=== PATIENT | female | born 1975 | race Caucasian/White ===

== ENCOUNTER 2016-12-16 16:19 | Emergency (ER) | payer OTHER ==
[2016-12-16 18:48] VITALS: BP 127/74
[2016-12-16] MEDS ORDERED: DOXYcycline CAP(*) 100 MG PO ONE (18:57)
--- NOTE | 2016-12-16 19:21 | UC ---
Skin Complaint HPI - HPI Summary HPI Summary: 41 y/o female presents to the urgent clinic c/o of a tick bite she noticed this morning. She reports she removed part of it and some remnants still in her back. Patient denies fever, headache, rash, SOB, chest pain, N/V/D - History of Current Complaint Chief Complaint: UCSkin Time Seen by Provider: 12/16/16 18:50 Stated Complaint: TICK BITE Hx Obtained From: Patient Hx Last Menstrual Period: 11/30/16 ?: No Onset/Duration: Sudden Onset, Lasting Hours, Still Present Onset Severity: Mild Current Severity: Mild Pain Intensity: 0 Pain Scale Used: 0-10 Numeric Aggravating: Nothing Alleviating: Nothing Associated Signs & Symptoms: Positive: Nausea, Vomiting. Negative: Fever, Rash - Allergy/Home Medications Allergies/Adverse Reactions: Allergies Allergy/AdvReac Type Severity Reaction Status Date / Time No Known Allergies Allergy Verified 12/16/16 18:43 Review of Systems Constitutional: Negative Skin: Other - tick bite in her back Eyes: Negative ENT: Negative Respiratory: Negative Cardiovascular: Negative Gastrointestinal: Negative Genitourinary: Negative Motor: Negative Neurovascular: Negative Musculoskeletal: Negative Neurological: Negative Psychological: Negative All Other Systems Reviewed And Are Negative: Yes PMH/Surg Hx/FS Hx/Imm Hx Previously Healthy: Yes - Surgical History Surgical History: Yes Surgery Procedure, Year, and Place: C section 2004 - Family History Known Family History: Positive: Hypertension, Diabetes, Other - colon cancer - Social History Occupation: Employed Full-time Alcohol Use: Rare Substance Use Type: None Smoking Status (MU): Never Smoked Tobacco - Immunization History Most Recent Tetanus Shot: UTD Physical Exam Triage Information Reviewed: Yes Appearance: Well-Appearing, No Pain Distress, Well-Nourished, Thin Vital Signs: Initial Vital Signs Temp 99.2 F 12/16/16 18:44 Pulse 85 12/16/16 18:44 Resp 16 12/16/16 18:44 BP 127/74 12/16/16 18:44 Pulse Ox 99 12/16/16 18:44 Vital Signs Reviewed: Yes Eye Exam: Normal Eyes: Positive: Conjunctiva Clear ENT Exam: Normal ENT: Positive: Hearing grossly normal, Pharynx normal, TMs normal Neck exam: Normal Neck: Positive: Supple, Nontender, No Lymphadenopathy Respiratory Exam: Normal Respiratory: Positive: Chest non-tender, Normal breath sounds Cardiovascular Exam: Normal Cardiovascular: Positive: RRR, No Murmur, Pulses Normal Abdominal Exam: Normal Abdomen Description: Positive: Nontender, No Organomegaly, Soft Bowel Sounds: Positive: Present Musculoskeletal Exam: Normal Neurological Exam: Normal Psychological Exam: Normal Skin: Positive: Other - left mid back with tick bite. remmnants of tick still inside. mild erythema without swelling or tenderness at bite site. Course/Dx - Course Course Of Treatment: Tick bite:left mid back with tick bite. remmnants of tick still inside. mild erythema without swelling or tenderness at bite site. removal of remmants was attempted without success. Pt given Prophylactic Doxyxycline to prevent lyme disease. Pt tolerated well medication. Pt advised if fever or rash develops to f/u up with her pcp or return to the urgent care for further treatment. - Differential Diagnoses - Skin Complaint Differential Diagnoses: Allergic Reaction, Eczema, Poison Teresa, Scabies - Diagnoses Provider Diagnoses: Tick bite Discharge - Discharge Plan Condition: Stable Disposition: HOME Patient Education Materials: Tick Bite (ED) Referrals: Brian Lynn MD [Primary Care Provider] - Additional Instructions: Please observe the area for the development or Erythema Migrans for upto 30 days following exposure. Components of the tick saliva can cause transient erythema that should no be confused with Erythema Migrans. Antibiotic prophylaxis with Doxycycline given to the patient to prevent lyme Disease.. Pt tolerated well medication.
== END 2016-12-16 19:42 | disposition home or self-care (01) ==
LOC: UCEAST 16:19
DX: S20.462A Insect bite (nonvenomous) of left back wall of thorax, initial encounter (principal); W57.XXXA Bitten or stung by nonvenomous insect and other nonvenomous arthropods, initial encounter
CPT/HCPCS: 99212; A9270-GY; G0463

== ENCOUNTER 2018-12-15 12:23 | Emergency (ER) | payer OTHER ==
[2018-12-15 12:36] VITALS: BP 136/87
--- NOTE | 2018-12-15 13:03 | UC ---
Lower Extremity/Ankle HPI - HPI Summary HPI Summary: 43-year-old woman comes in with a chief complaint of bilateral pedal edema. The left is worse than the right. Patient has occasionally had some edema but it always goes away each day. Recently the edema is been more frequent and more persistent. Recently she noticed asymmetry where her left leg is larger than her right leg. No shortness of breath no chest pain no abdominal pain. Patient feels well. No change in bowel or bladder. - History of Current Complaint Chief Complaint: UCLowerExtremity Stated Complaint: SWOLLEN LEG AND TINGLES Time Seen by Provider: 12/15/18 12:44 Hx Last Menstrual Period: 11/26/18 Pain Intensity: 0 - Allergies/Home Medications Allergies/Adverse Reactions: Allergies Allergy/AdvReac Type Severity Reaction Status Date / Time No Known Allergies Allergy Verified 12/15/18 12:36 Home Medications: Home Medications Escitalopram * [Lexapro *] 10 mg PO DAILY 12/15/18 [History Confirmed 12/15/18] Ibuprofen TAB* [Advil TAB*] 200 mg PO Q6H PRN 12/15/18 [History Confirmed ] PMH/Surg Hx/FS Hx/Imm Hx Previously Healthy: Yes - Surgical History Surgical History: Yes Surgery Procedure, Year, and Place: C section 2004 - Family History Known Family History: Positive: Hypertension, Diabetes, Other - colon cancer - Social History Alcohol Use: Rare Substance Use Type: None Smoking Status (MU): Never Smoked Tobacco - Immunization History Most Recent Tetanus Shot: UTD Review of Systems All Other Systems Reviewed And Are Negative: Yes Constitutional: Positive: Negative Skin: Positive: Negative Eyes: Positive: Negative ENT: Positive: Negative Respiratory: Positive: Negative Cardiovascular: Positive: Negative Gastrointestinal: Positive: Negative Genitourinary: Positive: Negative Motor: Positive: Negative Neurovascular: Positive: Negative Musculoskeletal: Positive: Calf Tenderness, Edema Neurological: Positive: Negative Psychological: Positive: Negative Is Patient Immunocompromised?: No Physical Exam Triage Information Reviewed: Yes Appearance: Well-Appearing, No Pain Distress, Well-Nourished Vital Signs: Initial Vital Signs Temp 98.2 F 12/15/18 12:31 Pulse 84 12/15/18 12:31 Resp 16 12/15/18 12:31 BP 136/87 12/15/18 12:31 Pulse Ox 100 12/15/18 12:31 Vital Signs Reviewed: Yes Eye Exam: Normal Eyes: Positive: Conjunctiva Clear Neck: Positive: Supple Respiratory: Positive: Lungs clear, Normal breath sounds, No respiratory distress Cardiovascular: Positive: RRR, No Murmur Abdomen Description: Positive: Nontender, Soft. Negative: CVA Tenderness (R), CVA Tenderness (L) Musculoskeletal: Positive: Other: - B/L PEDIAL EDEMA; LEF Neurological Exam: Normal Neurological: Positive: Alert, Muscle Tone Normal Psychological Exam: Normal Psychological: Positive: Age Appropriate Behavior Skin Exam: Normal Lower Extremity Course/Dx - Course Course Of Treatment: Patient Name: DESHAWN MEYER Medical Record#: [id number] Ordering Physician: Bryon Salinas MD Acct.#: [id number] : 1975 Age: 43 Sex: F Location: [facility] Exam Date: 12/15/18 1250 ADM Status: REG ER Order Information: VL LOWER EXT VEINS LEFT Accession Number: [id number] CPT: 06699 HISTORY: LLE Swelling COMPARISONS: None relevant TECHNIQUE: Multiple transverse and longitudinal ultrasound images were obtained of the left lower extremity from the level of the common femoral vein inferiorly through to the infrapopliteal veins using grayscale, color Doppler, and spectral Doppler imaging with and without compression and with augmentation. Comparison images were obtained of the contralateral common femoral vein. FINDINGS: VEINS: The venous system of the left lower extremity is compressible throughout its course, with normal flow on color Doppler imaging and normal response to augmentation on spectral Doppler imaging. SOFT TISSUES: Unremarkable. OTHER FINDINGS: None. IMPRESSION: NO LEFT LOWER EXTREMITY DEEP VEIN THROMBOSIS <Electronically signed by Ángel Rivero MD in [facility]> 12/15/18 1430 I discussed the venous Doppler of her left leg results with the patient. No evidence of DVT. Overall the patient feels well. CBC CMP pending for other possibilities of edema. Patient has no abdominal pain. Plan is to follow-up with the patient's primary care physician within the week. I prescribed HCTZ 25 mg once a day for 7 days to be used as needed. - Differential Dx/Diagnosis Provider Diagnosis: Pedal edema Discharge - Sign-Out/Discharge Documenting (check all that apply): Patient Departure All imaging exams completed and their final reports reviewed: Yes - Discharge Plan Condition: Stable Disposition: HOME Prescriptions: Hydrochlorothiazide TAB* [Hydrodiuril TAB*] 25 mg PO DAILY #7 tab Patient Education Materials: Leg Edema (ED) Referrals: Brian Lynn MD [Primary Care Provider] - Additional Instructions: FOLLOW UP WITH DR LYNN. GET RECHECKED SOONER IF YOUR CONDITION WORSENS OR ANY QUESTIONS OR CONCERNS. . - Billing Disposition and Condition Condition: STABLE Disposition: Home
[2018-12-15 19:26] LABS: ABS Basophils 0.1 10^3/ul (0-0.2); ABS Eosinophils 0.1 10^3/ul (0-0.6); ABS Lymphocytes 1.5 10^3/ul (1.0-4.8); ABS Monocytes 0.4 10^3/ul (0-0.8); Eosinophil % 1.6 %; Hematocrit 40 % (35-47); Hemoglobin 13.2 g/dL (12.0-16.0); Lymphocyte % 21.7 %; Mean Corpuscular HGB Conc 33 g/dL (31-36); Mean Corpuscular Hemoglobin 27 pg (27-31); Mean Corpuscular Volume 82 fL (80-97); Mean Platelet Volume 9.2 fL (7.4-10.4); Platelet Count 218 10^3/uL (150-450); Red Blood Count 4.89 10^6 /uL (3.70-4.87); Red Cell Distribution Width 14 % (10.5-15); White Blood Count 7.1 10^3/uL (3.5-10.8)
[2018-12-15 19:44] LABS: Albumin 4.2 g/dL (3.2-5.2); Albumin/Globulin Ratio 1.8 (1-3); BUN/Creatinine Ratio 14.5 (8-20); EGFR African American 99.6 (>60); EGFR Non-African American 82.3 (>60); Globulin 2.4 g/dL (2-4); Potassium 4.1 mmol/L (3.5-5.0); Total Bilirubin 0.3 mg/dL (0.2-1.0); Total Protein 6.6 g/dL (6.4-8.9)
== END 2018-12-15 14:30 | disposition home or self-care (01) ==
LOC: UCEAST 12:23
DX: R60.0 Localized edema (principal)
CPT/HCPCS: 36415; 80053; 85025; 99212; G0463